=== PATIENT | female | born 1950 | race Caucasian/White ===

== ENCOUNTER 2019-03-05 06:49 | Day surgery (SDC) ==
--- NOTE | 2019-02-21 14:05 | EKG Report ---
Test Performed on : 02/21/2019 1:50:24 PM Test Reason : PAT Blood Pressure : / mmHG Vent. Rate : 096 BPM Atrial Rate : 096 BPM P-R Int : 170 ms QRS Dur : 112 ms QT Int : 366 ms P-R-T Axes : 048 -29 015 degrees QTc Int : 462 ms Normal sinus rhythm. Incomplete right bundle branch block T wave abnormality, consider anterior ischemia Abnormal ECG When compared with ECG of 30-NOV-2017 08:50, Incomplete right bundle branch block is now present Confirmed by Jericho OHARA, Tony ([id number]) on 02/22/2019 11:22:01 AM
[2019-02-21 14:17] LABS: URINE SOURCE CLEAN CATCH
[2019-02-21 14:20] LABS: BASO# 0.01 X1000 (0.0-0.2); BASO% 0.1 % (0.0-0.8); EOS# 0.11 X1000 (0.0-0.7); EOS% 1.6 % (0.0-10.0); HEMATOCRIT 45.7 % (37.0-47.0); HEMOGLOBIN 14.8 g/dL (12.0-16.0); LYMPH# 1.64 X1000 (1.2-3.4); LYMPH% 23.5 % (20.5-51.1); MCHC 32.4 g/dL (33-37); MCV 101.8 FL (81-99); MONO# 0.67 X1000 (0.11-0.59); MONO% 9.6 % (1.7-9.3); MPV 12.5 FL (7.4-10.4); NEUT# 4.54 X1000 (1.4-6.5); NEUT% 65.2 % (42.2-75.2); PLT 221 X1000 (130-400); RBC 4.49 XMIL (4.2-5.4); RDW 13.5 % (11.5-14.5); WBC 6.97 X1000 (4.8-10.8)
[2019-02-21 14:27] LABS: BILIRUBIN URINE NEGATIVE (NEGATIVE); BLOOD URINE NEGATIVE (NEGATIVE); COLOR YELLOW; GLUCOSE URINE NEGATIVE (NEGATIVE); KETONE URINE NEGATIVE (NEGATIVE); LEUKOCYTES URINE NEGATIVE (NEGATIVE); NITRITE URINE NEGATIVE (NEGATIVE); PH URINE 7.5; PROTEIN URINE TRACE mg/dL (NEGATIVE); SP GRAVITY URINE 1.018; TURBIDITY URINE HAZY (CLEAR); UROBILINOGEN URINE NORMAL (NORMAL)
[2019-02-21 14:29] LABS: UR EPITHELIAL CELLS <10 /HPF (<10); URINE BACTERIA NEGATIVE /HPF; URINE RBC <10 /HPF (<10); URINE WBC <10 /HPF (<10)
[2019-02-21 14:31] LABS: HEMOGLOBIN A1C 5.3 % (4.8-6.0)
[2019-02-21 14:44] LABS: INR 0.99; PROTIME 13.2 Seconds (11.0-16.0)
[2019-02-21 14:49] LABS: AGAP 17; ALBUMIN 4.3 g/dL (3.5-5.0); BUN 9 mg/dL (8-22); CALCIUM 9.4 mg/dL (8.8-10.2); CHLORIDE 100 mmol/L (98-107); COSMO 270; CREATININE 0.7 mg/dL (0.5-0.9); ESTIMATED GFR > 60; GLUCOSE 89 mg/dL (70-104); SODIUM 136 mmol/L (136-145); TCO2 19 mmol/L (25-35)
[2019-03-05] MEDS ORDERED: COLACE ONE (07:40)
[2019-03-05] MEDS ORDERED: REGLAN ONE (07:40)
[2019-03-05] MEDS ORDERED: PEPCID ONE (07:40)
[2019-03-05] MEDS ORDERED: KEFZOL 1 GM/D5W 1 GM/50 ML IVPB ONE (07:41)
[2019-03-05] MEDS ORDERED: LR 1,000 ML ONE (07:41)
[2019-03-05] MEDS ORDERED: LYRICA ONE (07:41)
[2019-03-05] MEDS ORDERED: DURAMORPH ONE (08:02)
[2019-03-05] MEDS ORDERED: CYKLOKAPRON 1,000 MG/NS 2,000 MG/200 ML IVPB ONE (08:02)
[2019-03-05] MEDS ORDERED: SODIUM CHLORIDE 0.9% ONE (08:02)
[2019-03-05] MEDS ORDERED: MARCAINE 0.25% PF ONE (08:02)
[2019-03-05] MEDS ORDERED: TORADOL ONE (08:02)
[2019-03-05] MEDS ORDERED: TOBRAMYCIN POWDER ONE (08:02)
[2019-03-05] MEDS ORDERED: EXPAREL 1.3% ONE (08:03)
[2019-03-05] MEDS ORDERED: NEOSPORIN G.U. IRRIGANT ONE (08:03)
[2019-03-05] MEDS ORDERED: DIPRIVAN 1% ONE (08:13)
[2019-03-05] MEDS ORDERED: XYLOCAINE-MPF 2% ONE (08:13)
[2019-03-05] MEDS ORDERED: VERSED ONE (08:13)
[2019-03-05] MEDS ORDERED: FENTANYL ONE (08:13)
[2019-03-05] MEDS ORDERED: DECADRON ONE (09:28)
[2019-03-05] MEDS ORDERED: ZOFRAN ONE (09:28)
[2019-03-05] MEDS ORDERED: OFIRMEV 1000 MG/ISOTONIC SOLN 1,000 MG/100 ML BOTTLE ONE (09:28)
[2019-03-05] MEDS ORDERED: EPHEDRINE ONE (09:31)
[2019-03-05 09:51] LABS: URINE SOURCE CATH
[2019-03-05 10:04] LABS: BILIRUBIN URINE NEGATIVE (NEGATIVE); BLOOD URINE NEGATIVE (NEGATIVE); COLOR YELLOW; GLUCOSE URINE NEGATIVE (NEGATIVE); KETONE URINE NEGATIVE (NEGATIVE); LEUKOCYTES URINE NEGATIVE (NEGATIVE); NITRITE URINE NEGATIVE (NEGATIVE); PH URINE 8.5; PROTEIN URINE TRACE mg/dL (NEGATIVE); SP GRAVITY URINE 1.021; TURBIDITY URINE CLEAR (CLEAR); UROBILINOGEN URINE NORMAL (NORMAL)
[2019-03-05 10:05] LABS: UR EPITHELIAL CELLS <10 /HPF (<10); URINE BACTERIA NEGATIVE /HPF; URINE RBC <10 /HPF (<10); URINE WBC <10 /HPF (<10)
[2019-03-05] MEDS ORDERED: NS 1,000 ML ONE (11:09)
[2019-03-05] MEDS ORDERED: OXY IR PO PRN ×2 (12:00)
[2019-03-05] MEDS ORDERED: ZOFRAN IV PRN (12:00)
[2019-03-05] MEDS ORDERED: MORPHINE IV PRN ×3 (12:00)
[2019-03-05] MEDS ORDERED: ZOFRAN ODT PO PRN (12:00)
[2019-03-05] MEDS: TYLENOL PO SCH ×2 (12:51→18:23)
[2019-03-05] MEDS: NS 1,000 ML IV SCH (12:52)
[2019-03-05] MEDS: ULTRAM PO SCH ×2 (12:52→18:23)
--- NOTE | 2019-03-05 13:00 | Diag Imaging Result Doc PS360 ---
EXAM: KNEE 1-2 VIEWS-LEFT 03/05/2019 HISTORY: LEFT TOTAL KNEE TECHNIQUE: Left knee two views COMMENT: There is a total knee arthroplasty. There is no evidence of fracture or other acute bony abnormality. IMPRESSION: No evidence of acute bony disease. Electronically signed by Jostin Shannon 03/05/2019 12:57 PM
[2019-03-05] MEDS: PATIENT'S OWN MED PO SCH ×3 (15:45→20:22)
--- NOTE | 2019-03-05 17:21 | OPERATIVE NOTE ---
PROCEDURE DATE: 03/05/2019 PREOPERATIVE DIAGNOSIS: Degenerative joint disease, left knee. POSTOPERATIVE DIAGNOSIS: Degenerative joint disease, left knee. PROCEDURE PERFORMED: Left total knee replacement. SURGEON: Federico Torres MD D[employer] CRUSHING: AMERICA Huerta. MsBaldo Lima was necessary for proper retraction and manipulation of the case. ANESTHESIA: Spinal. COMPLICATION: None. PROCEDURE IN DETAIL: This 68-year-old female presents for a left total knee. Risks, benefits, and no guarantees were discussed and she is willing to proceed. She was taken to the operating room and satisfactory anesthesia obtained. The left knee was prepped and draped in usual sterile fashion. A time-out was taken to confirm operative site, procedure, and patient. The leg was wrapped with an Esmarch and tourniquet inflated to 300 mmHg. A midline incision was made over the front of the knee followed by a quadriceps tendon sparing arthrotomy. The patella was everted and resurfaced with freehand technique and subluxed laterally. With the knee flexed an intramedullary hole was made in the distal femur and the distal femoral cutting block secured in 5 degrees of valgus with a 10 mm resection. The distal femur was resected and sized to a size 6 DePuy Attune femoral implant. The 4 in 1 block was secured and the anterior, posterior, and chamfer cuts sequentially made. Care was taken to preserve the PCL and collateral ligaments. Any remaining osteophytes were debrided from the femur. A PCL retractor was placed behind the tibia and the knee flexed and the tibial cutting block secured with extramedullary alignment. Tibial resection was made and the tibia sized to a size 6 tibial tray. The tibial tray was prepared with the provided keel punch and a trial reduction performed. Good stability was noted with a 7 mm spacer. The patella was then sized to a 35 medialized dome patella. The drill holes were placed for the patella and femoral implants. All the trial components removed. The bony surfaces were thoroughly irrigated with pulsatile lavage. Cement with a gram of vancomycin was then utilized to cement a size 6 rotating platform tibial tray, a size 6 left cruciate retaining standard width femoral component and a 35 medialized dome patella. While the cement cured, the joint capsule was injected with Exparel and a Hemovac drain placed. After curing of the cement, a size 6-7 mm thick CR rotating platform poly was secured in the tibial tray and the knee reduced. Final range of motion was 0 to 130 degrees with midline patellar tracking. Good soft tissue balance was achieved. The wound was copiously irrigated with irrigant. It was closed over the drain with #1 Vicryl in the arthrotomy, 2-0 Vicryl in the subcutaneous and then subcu closure with perennial over the skin. Sterile bandages completed this and she was recovered from anesthesia and transferred to the recovery room in stable condition. No intraoperative complications were noted. Instrument count and sponge count was correct at the time of closure. cc: Lavell Torres MD
[2019-03-05] MEDS: KEFZOL 1 GM/D5W 1 GM/50 ML IVPB IV SCH (18:23)
--- NOTE | 2019-03-05 20:14 | ORTHOPAEDICS PROGRESS NOTE ---
DATE: 03/05/2019 SUBJECTIVE DATA: Ms. Grullon is sitting up in bed. She is awake and alert. She states her pain is controlled. OBJECTIVE DATA: Left lower extremity exam. Her surgical dressing is clean, dry, and intact. She has a drain that is draining a small amount of blood. She is able to dorsi and plantar flex the foot. Her lower extremity intrinsics are intact. She has a 2+ pedal pulse. Postoperative x-ray shows good overall alignment of her total knee arthroplasty. ASSESSMENT: Status post left total knee arthroplasty. PLAN: Ms. Grullon is postop day 0. She is doing well. She is awake and alert. She may work with physical therapy this evening. If not, she will work with them first thing in the morning. We will plan on her going home with home health tomorrow as long as everything looks good. Dictated by AMERICA Huerta for Lavell Torres MD cc: AMERICA Huerta MD
[2019-03-05] MEDS: COLACE PO SCH (20:18)
[2019-03-05] MEDS: PERIDEX MT SCH (20:18)
[2019-03-05] MEDS: CALTRATE 600 PO SCH (20:19)
[2019-03-05] MEDS: CELEBREX PO SCH (20:19)
[2019-03-05] MEDS ORDERED: ZONEGRAN PO SCH (21:00)
[2019-03-05] MEDS ORDERED: SEROQUEL PO SCH (21:00)
[2019-03-05] MEDS ORDERED: ATIVAN PO SCH (21:00)
[2019-03-05 21:09] LABS: BASO# 0.01 X1000 (0.0-0.2); BASO% 0.1 % (0.0-0.8); HEMATOCRIT 38.4 % (37.0-47.0); HEMOGLOBIN 12.2 g/dL (12.0-16.0); IMM GRAN# 0.03 X1000 (0.0-0.04); IMM GRAN% 0.2 % (0.0-0.5); LYMPH% 8.3 % (20.5-51.1); MCH 31.8 PG (27-31); MCHC 31.8 g/dL (33-37); MONO% 6.6 % (1.7-9.3); NEUT# 10.23 X1000 (1.4-6.5); NEUT% 84.8 % (42.2-75.2); PLT 291 X1000 (130-400); RBC 3.84 XMIL (4.2-5.4); RDW 13.1 % (11.5-14.5); WBC 12.07 X1000 (4.8-10.8)
[2019-03-05 21:13] LABS: INR 1.07; PROTIME 14.1 Seconds (11.0-16.0); PTT 29.1 Seconds (22.3-41.8)
[2019-03-05 21:19] LABS: AGAP 17; ALB/GLOB RATIO 1.3; ALBUMIN 3.9 g/dL (3.5-5.0); ALKALINE PHOSPHATASE 101 U/L (32-104); BUN 6 mg/dL (8-22); CALCIUM 8.4 mg/dL (8.8-10.2); CHLORIDE 104 mmol/L (98-107); COSMO 279; CREATININE 0.7 mg/dL (0.5-0.9); ESTIMATED GFR > 60; GLUCOSE 140 mg/dL (70-104); GOT 20 U/L (10-30); GPT 13 U/L (10-36); MAGNESIUM 2.1 mg/dL (1.5-2.7); PHOSPHORUS 2.4 mg/dL (2.7-4.5); POTASSIUM 4.1 mmol/L (3.5-5.1); SODIUM 140 mmol/L (136-145); TCO2 19 mmol/L (25-35); TOTAL BILIRUBIN 0.19 mg/dL (0.20-1.00); TOTAL PROTEIN 6.8 g/dL (6.3-8.3)
--- NOTE | 2019-03-05 21:46 | EKG Report ---
Test Performed on : 03/05/2019 8:39:48 PM Test Reason : CAT call Blood Pressure : / mmHG Vent. Rate : 118 BPM Atrial Rate : 118 BPM P-R Int : 170 ms QRS Dur : 116 ms QT Int : 318 ms P-R-T Axes : 093 -40 017 degrees QTc Int : 445 ms Sinus tachycardia. Left axis deviation Inferior-posterior infarct , age undetermined Abnormal ECG When compared with ECG of 21-FEB-2019 13:50, No significant change was found Confirmed by Otoniel OHARA, Carlos Trimble ([id number]) on 03/06/2019 10:20:43 AM
[2019-03-06] MEDS: ULTRAM PO SCH ×3 (00:04→06:32)
[2019-03-06] MEDS: TYLENOL PO SCH ×3 (00:05→06:32)
[2019-03-06] MEDS: KEFZOL 1 GM/D5W 1 GM/50 ML IVPB IV SCH (00:08)
[2019-03-06] MEDS: NS 1,000 ML IV SCH (02:14)
[2019-03-06 07:51] LABS: AGAP 9; BUN 7 mg/dL (8-22); CALCIUM 7.7 mg/dL (8.8-10.2); CHLORIDE 104 mmol/L (98-107); COSMO 269; CREATININE 0.6 mg/dL (0.5-0.9); ESTIMATED GFR > 60; GLUCOSE 87 mg/dL (70-104); POTASSIUM 3.8 mmol/L (3.5-5.1); SODIUM 136 mmol/L (136-145); TCO2 23 mmol/L (25-35)
[2019-03-06 07:58] VITALS: BP 106/57
[2019-03-06] MEDS: CELEBREX PO SCH (08:23)
[2019-03-06] MEDS: PERIDEX MT SCH (08:24)
[2019-03-06] MEDS: COLACE PO SCH (08:24)
[2019-03-06] MEDS: CALTRATE 600 PO SCH (08:24)
[2019-03-06 08:29] LABS: HEMATOCRIT 32.6 % (37.0-47.0); HEMOGLOBIN 10.3 g/dL (12.0-16.0)
[2019-03-06] MEDS ORDERED: QUESTRAN PO SCH (09:00)
[2019-03-06] MEDS ORDERED: NEXIUM PO SCH (09:00)
[2019-03-06] MEDS ORDERED: LAMICTAL PO SCH (09:00)
[2019-03-06] MEDS ORDERED: ASPIRIN PO SCH (09:00)
[2019-03-06] MEDS ORDERED: PEPCID PO SCH (09:00)
[2019-03-06] MEDS ORDERED: CULTURELLE PO SCH (09:00)
--- NOTE | 2019-03-06 12:41 | ORTHOPAEDICS PROGRESS NOTE ---
DATE: 03/06/2019 Ms. Grullon is seen status post total knee replacement. At the present time, she is afebrile with stable vital signs. She is awake and alert, and in normal faculties. Her incision is clean and dry. There are no signs of infection, active bleeding or DVT. She is motor and sensory intact. She did have a seizure last night, and has a history of seizures in the past. She is to resume medication for that, and is normal on evaluation today, and back to baseline. There is no apparent residuals after effects of that. We will plan on mobilizing her today, and she can be discharged for outpatient therapy. I will see her in a week or so. She is to return for any worsening signs or symptoms. She is to resume all her regular medicines including her seizure medicine. Discharge medicines include Percocet 10 1 every 4 hours as needed for pain, doxycycline for wound prophylaxis, Lovenox 40 mg subcutaneous daily with 81 mg aspirin for DVT prophylaxis, and Colace just for prevention of constipation. She is to return in the interim for any worsening signs or symptoms. cc: Lavell Torres MD
== END 2019-03-06 11:36 | disposition home or self-care (01) ==
LOC: 4N 06:49 → OR 06:49
PROVIDERS: ATTEND Orthopaedic Surgery Adult Reconstructive Orthopaedic Surgery